=== PATIENT | male | born 1935 | race Caucasian/White ===

== ENCOUNTER 2021-12-15 11:56 | Emergency (ER) | payer MEDICARE ==
[~2021-12-15] VITALS: Ht 172.7 cm; Wt 65.9 kg
[~2021-12-15 11:56] MED LIST: ASPIRIN 81M81 MG/TA2 PO; CARDIZEM CD 24240 MG PO; FLAGYL500 MG PO; HCTZ12.5TAB PO; LEVAQUIN 750MG750 M1 PO; MULTIPLE VITAMI1 TA5 PO; ZESTRIL40 MG PO
[2021-12-15 12:05] VITALS: TEMP 97.5
[2021-12-15] MEDS ORDERED: NORCO 325 MG-51 TAB PO (15:18)
[2021-12-15 15:57] VITALS: BP 129/76; PULSE 60
== END 2021-12-15 16:15 | disposition home or self-care (01) ==
LOC: COL.ER 11:56
DX: S43.084A Other dislocation of right shoulder joint, initial encounter (principal); W06.XXXA Fall from bed, initial encounter
CPT/HCPCS: J2704; J3010; J7030

== ENCOUNTER → 2022-04-29 | Outpatient (REF) | payer MEDICARE ==
[~2022-04-29] MED LIST changes: +NORCO 325 MG-51 TAB PO
[2022-04-29 19:19] LABS: BASO # 0.1 K/mm3 (0.0-0.2); BASO % 0.4 % (0.0-2.0); EOS # 0.3 K/mm3 (0.0-0.7); EOS % 2.5 % (0.0-4.0); GRAN # 9.8 K/mm3 (1.4-6.5); GRAN % 71.1 % (42.2-75.2); HEMOGLOBIN 16.3 g/dl (13.5-18.0); LYMPH # 2.7 K/mm3 (1.2-3.4); LYMPH % 19.9 % (20.0-51.0); MEAN CELL VOLUME 91 fl (80.0-100.0); MEAN CORPUSCULAR HEMOGLOBIN 31 pg (27-31); MEAN CORPUSCULAR HGB CONC 34 g/dl (33.0-37.0); MEAN PLATELET VOLUME 10.8 fl (7.4-10.4); MONO # 0.8 K/mm3 (0.1-0.6); MONO % 5.7 % (1.7-9.3); PLATELET COUNT 176 K/mm3 (130-400); RED BLOOD COUNT 5.28 M/mm3 (4.20-5.60); REDCELL DISTRIBUTION WIDTH-CV 13.3 % (11.5-14.5)
[2022-04-29 19:39] LABS: ALBUMIN 4.2 gm/dL (3.4-4.8); BILIRUBIN,TOTAL 0.4 mg/dL (0.2-1.2); CALCIUM 9.6 mg/dL (8.4-10.2); CREATININE, serum 0.9 mg/dL (0.72-1.25); POTASSIUM 4.7 mmol/L (3.5-4.5); TOTAL PROTEIN 8.1 gm/dL (6.2-8.1)
[2022-04-29 19:59] LABS: THYROID STIMULATING HORMONE 2.701 uIU/mL (0.350-4.940)
== END ==
LOC: ZCOL.LAB 18:47
PROVIDERS: Internal Medicine
DX: G62.9 Polyneuropathy, unspecified (principal); E03.9 Hypothyroidism, unspecified

== ENCOUNTER → 2023-08-18 | Outpatient (CLI) | payer MEDICARE | LOC: COL.RAD 09:02 | DX: M19.021 Primary osteoarthritis, right elbow (principal) ==

== ENCOUNTER → 2023-11-04 | Outpatient (REF) | payer MEDICARE, MEDICAID ==
[2023-11-04 12:14] LABS: BASO # 0.1 K/mm3 (0.0-0.2); BASO % 0.5 % (0.0-2.0); EOS # 0.3 K/mm3 (0.0-0.7); EOS % 2.9 % (0.0-4.0); GRAN # 8.3 K/mm3 (1.4-6.5); GRAN % 75.1 % (42.2-75.2); HEMOGLOBIN 16.1 g/dl (13.5-18.0); LYMPH # 1.8 K/mm3 (1.2-3.4); LYMPH % 16.7 % (20.0-51.0); MEAN CELL VOLUME 91 fl (80.0-100.0); MEAN CORPUSCULAR HEMOGLOBIN 30 pg (27-31); MEAN CORPUSCULAR HGB CONC 34 g/dl (33.0-37.0); MEAN PLATELET VOLUME 10.7 fl (7.4-10.4); MONO # 0.5 K/mm3 (0.1-0.6); MONO % 4.3 % (1.7-9.3); PLATELET COUNT 174 K/mm3 (130-400); RED BLOOD COUNT 5.29 M/mm3 (4.20-5.60); REDCELL DISTRIBUTION WIDTH-CV 13.7 % (11.5-14.5)
[2023-11-04 12:23] LABS: ERYTHROCYTE SEDIMENTATION RATE 19 mm/hr (0-30)
[2023-11-04 12:26] LABS: C-REACTIVE PROTEIN 0.58 mg/dL (0.00-0.50); URIC ACID 4.4 mg/dL (3.5-7.2)
== END ==
LOC: ZCOL.LAB 11:19
PROVIDERS: Internal Medicine
DX: M48.07 Spinal stenosis, lumbosacral region (principal); M10.9 Gout, unspecified